=== PATIENT | female | born 1995 | race Caucasian/White ===

== ENCOUNTER 2018-04-29 09:14 | Outpatient (CLI) | payer OTHER ==
--- NOTE | 2018-04-29 15:38 | RAD ---
LUMBAR SPINE 3 VIEWS: HISTORY: Low back pain. Left sciatic pain. COMPARISON: None. FINDINGS: Lateral neutral, lateral flexion, and extension views demonstrate 6 lumbar-type vertebral bodies. Th ere appear to be bilateral pars defects at the L6 level. No associated spondylolisthesis. Disk space heights are preserved. No vertebral body fracture. 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 Oblique radiographs as well as an AP radiograph would be beneficial. POS: NORM
--- NOTE | 2018-04-29 17:15 | MRI ---
MRI LUMBAR SPINE WITHOUT CONTRAST: 04/29/2018 HISTORY: Spondylolisthesis. COMPARISON: None. TECHNIQUE: Multiplanar, multisequence MR imaging of the lumbar spine is provided without contrast. FINDINGS: The sagittal STIR imaging demonstrates no focal area of osseous marrow edema. There is 6 mm of anterolisthesis of L5 on S1. Bilateral L5 pars defects are noted. Assuming five lumbar type vertebral bodies, the conus medullaris terminates at the T12 level. T12-L1: Intervertebral disk height and signal intensity is within normal limits with no significant central canal or neural foraminal stenosis. L1-L2: Intervertebral disk height and signal intensity is within normal limits with no significant c entral canal or neural foraminal stenosis. L2-L3: Intervertebral disk height and signal intensity is within normal limits with no significant c entral canal or neural foraminal stenosis. L3-L4: Intervertebral disk height and signal intensity within normal limits with no significant cent ral canal or neural foraminal stenosis. L4-L5: Intervertebral disk height and signal intensity within normal limits with no significant cent ral canal or neural foraminal stenosis. L5-S1: There is disk space narrowing and partial disk desiccation with mild disk bulge and no associ ate central canal stenosis. Mild neural foraminal stenosis noted on the left. Imaged retroperitoneal structures appear grossly unremarkable. IMPRESSION: Bilateral L5 pars defects with mild anterolisthesis of L5 on S1. POS: NORM
== END 2018-04-29 09:15 | disposition home or self-care (01) ==
LOC: TBSIIMAG 09:14
PROVIDERS: ATTEND Neurological Surgery
DX: M43.12 Spondylolisthesis, cervical region (principal); M47.816 Spondylosis without myelopathy or radiculopathy, lumbar region; M43.17 Spondylolisthesis, lumbosacral region
CPT/HCPCS: 72100; 72148